=== PATIENT | male | born 1965 | race Caucasian/White ===

== ENCOUNTER 2023-07-26 21:04 | Emergency (ER) | payer MEDICAID ==
[~2023-07-26] VITALS: Ht 182.9 cm; Wt 99.8 kg
[2023-07-26 21:38] VITALS: BP_SYST 121; PULSE 90; RESP 16; TEMP 98.1; O2SAT 95
[2023-07-26 22:12] LABS: BASOPHILS % (AUTO) 0.3 % (0.0-2.0); EOSINOPHILS # (AUTO) 0.3 K/uL (0.0-0.4); EOSINOPHILS % (AUTO) 4.5 % (0.0-4.0); HEMATOCRIT 45.2 % (36-54); HEMOGLOBIN 15.3 g/dL (14.0-18.0); LYMPHOCYTES # (AUTO) 2.3 K/uL (1.0-5.5); LYMPHOCYTES % (AUTO) 29.5 % (20.5-51.5); MEAN CORPUSCULAR HEMOGLOBIN 30 pg (27-31); MEAN CORPUSCULAR HGB CONC 34 % (32-36); MEAN CORPUSCULAR VOLUME 89 fL (79.0-98.0); MONOCYTES # (AUTO) 0.6 K/uL (0.0-1.0); NEUTROPHILS # (AUTO) 4.5 K/uL (1.8-7.7); NEUTROPHILS % (AUTO) 57.7 % (40.0-70.0); PLATELET COUNT (AUTO) 316 K/uL (130-430); RED BLOOD CELL COUNT(AUTO) 5.07 MIL/uL (4.2-6.2); RED CELL DISTRIBUTION WIDTH 14.1 % (9.0-15.0); WHITE BLOOD COUNT (AUTO) 7.8 K/uL (4.8-10.8)
[2023-07-26 22:28] LABS: ANION GAP 6 (5-15); CALCIUM 9.5 mg/dL (8.4-11.0); CARBON DIOXIDE 31 mmol/L (23-29); CHLORIDE 97 mmol/L (98-107); CREATININE 0.83 mg/dL (0.55-1.30); GFR AFRICAN AMERICAN 122 mL/min (>90); GLUCOSE 377 mg/dL (74-106); POTASSIUM 4.4 mmol/L (3.5-5.1); SODIUM SERUM 134 mmol/L (136-145); UREA NITROGEN, BLOOD 16 mg/dL (8-21)
[2023-07-26 22:44] LABS: ALANINE AMINOTRANSFERASE 68 U/L (12-78); ALBUMIN 3.7 g/dL (3.4-4.8); AMYLASE 44 U/L (0-100); ASPARTATE AMINOTRANSFERASE 22 U/L (10-37); BILIRUBIN,DIRECT 0.1 mg/dL (0.0-0.3); GFR NON AFRICAN-AMERICAN 101 mL/min (>90); LIPASE 36 U/L (16-77); TOTAL BILIRUBIN 0.3 mg/dL (0.0-1.0); TOTAL PROTEIN, SERUM 7.4 g/dL (6.4-8.3)
[2023-07-26] MEDS ORDERED: AUG875 PO (22:46)
[2023-07-26] MEDS ORDERED: METF-834 PO (22:46)
[2023-07-26] MEDS ORDERED: KETO60CR2 TP (22:46)
[2023-07-26 22:53] LABS: ACETONE, SERUM NEGATIVE (NEGATIVE)
[2023-07-26 23:16] LABS: BILIRUBIN,URINE NEGATIVE (NEGATIVE); BLOOD, URINE NEGATIVE (NEGATIVE); GLUCOSE,URINE 3+ (NEGATIVE); KETONES,URINE NEGATIVE (NEGATIVE); LEUKOCYTE ESTERASE ,URINE NEGATIVE (NEGATIVE); NITRITE, URINE NEGATIVE (NEGATIVE); PROTEIN URINE NEGATIVE (NEGATIVE); UROBILINOGEN,URINE 0.2 (0.2-1.0)
[2023-07-26 23:22] VITALS: BP_SYST 121; PULSE 90; RESP 16; TEMP 98.1; O2SAT 95
[2023-07-26 23:37] LABS: CLARITY/URINE CLEAR (CLEAR); COLOR,URINE STRAW (YELLOW)
[2023-07-26 23:51] LABS: RBC,URINE NONE SEEN /HPF (0-3)
[2023-07-26 23:52] LABS: BACTERIA,URINE None Seen /HPF (None Seen); WBC,URINE 0-3 /HPF (0-3)
== END 2023-07-26 23:22 | disposition home or self-care (01) ==
LOC: SED 21:04
DX: H65.91 Unspecified nonsuppurative otitis media, right ear (principal); E11.9 Type 2 diabetes mellitus without complications; B37.42 Candidal balanitis; Z79.899 Other long term (current) drug therapy
CPT/HCPCS: 36415; 80048; 80076; 81000; 81001; 81015; 82009; 82150; 82948; 83605; 83690; 85025; 99283

== ENCOUNTER 2023-08-02 21:35 | Emergency (ER) | payer MEDICAID ==
[~2023-08-02] VITALS: Ht 175.3 cm; Wt 86.2 kg
[~2023-08-02 21:35] MED LIST: AUG875 PO; KETO60CR2 TP; METF-834 PO
[2023-08-02 21:54] VITALS: BP_SYST 113; PULSE 82; RESP 16; TEMP 98.1; O2SAT 96
[2023-08-02] MEDS: NACL 0.9% 1,000 ML IV ONE (22:28)
[2023-08-02 22:42] LABS: BASOPHILS % (AUTO) 0.5 % (0.0-2.0); EOSINOPHILS # (AUTO) 0.4 K/uL (0.0-0.4); HEMATOCRIT 42.4 % (36-54); HEMOGLOBIN 14.4 g/dL (14.0-18.0); LYMPHOCYTES # (AUTO) 2.2 K/uL (1.0-5.5); LYMPHOCYTES % (AUTO) 36.5 % (20.5-51.5); MEAN CORPUSCULAR HEMOGLOBIN 30 pg (27-31); MEAN CORPUSCULAR HGB CONC 34 % (32-36); MEAN CORPUSCULAR VOLUME 89 fL (79.0-98.0); MONOCYTES # (AUTO) 0.5 K/uL (0.0-1.0); MONOCYTES % (AUTO) 8.9 % (1.7-9.3); NEUTROPHILS # (AUTO) 2.9 K/uL (1.8-7.7); NEUTROPHILS % (AUTO) 48.1 % (40.0-70.0); PLATELET COUNT (AUTO) 301 K/uL (130-430); RED BLOOD CELL COUNT(AUTO) 4.79 MIL/uL (4.2-6.2); RED CELL DISTRIBUTION WIDTH 14.1 % (9.0-15.0); WHITE BLOOD COUNT (AUTO) 6.1 K/uL (4.8-10.8)
[2023-08-02 22:57] LABS: CALCIUM 9.1 mg/dL (8.4-11.0); CREATININE 0.72 mg/dL (0.55-1.30); POTASSIUM 3.9 mmol/L (3.5-5.1)
[2023-08-02] MEDS ORDERED: EMPA25TA PO (23:34)
[2023-08-03] VITALS: BP_SYST 132; PULSE 81; RESP 18; TEMP 97.8; O2SAT 93
== END 2023-08-03 | disposition home or self-care (01) ==
LOC: SED 21:35
DX: E11.65 Type 2 diabetes mellitus with hyperglycemia (principal); Z79.899 Other long term (current) drug therapy
CPT/HCPCS: 99283; 96360; 80048; 85025; 36415; 82948; J7030